=== PATIENT | female | born 1955 | race Caucasian/White ===

== ENCOUNTER 2021-09-05 09:16 | Outpatient (REF) | payer MEDICARE, SELFPAY ==
[2021-09-05 10:35] LABS: Hematocrit 35.8 % (37.0-47.0); Hemoglobin 12.4 g/dl (12.0-16.0); Mean Corpuscular HGB Conc 34.6 g/dl (31.0-35.0); Mean Corpuscular Hemoglobin 30.7 pg (27.0-33.0); Mean Corpuscular Volume 88.6 fL (80.0-98.0); Mean Platelet Volume 8.6 fL (9.4-12.3); Platelet Count 327 X10*3/uL (160-400); Red Blood Count 4.04 X10*6/uL (4.20-5.50); Red Cell Distribution Width 12.6 % (11.0-16.0); White Blood Count 7.4 X10*3/uL (4.8-10.8)
[2021-09-05 11:09] LABS: Alanine Aminotransferase 14 U/L (0-31); Albumin Level 4.2 g/dL (3.5-5.0); Alkaline Phosphatase 103 U/L (39-117); Anion Gap 15 (12-20); Aspartate Amino Transferase 17 U/L (5-31); Bilirubin Direct 0.2 mg/dL (0.0-0.5); Bilirubin Total 0.5 mg/dL (0.0-1.0); Blood Urea Nitrogen 20 mg/dL (9-16); Calcium 9.6 mg/dL (8.4-10.2); Carbon Dioxide 22 mmol/L (22-29); Chloride 107 mmol/L (96-108); Cholesterol 195 mg/dL; Estimated Glomerular Filt Rate > 60; Glucose Random 95 mg/dL (60-115); HDL Cholesterol 49 mg/dL; LDL Cholesterol Calculated 128 mg/dl; Potassium 4.5 mmol/L (3.3-5.1); Sodium 139 mmol/L (135-145); Triglycerides 94 mg/dL
[2021-09-05 11:33] LABS: Thyroid Stimulating Hormone 1.05 uIU/mL (0.32-4.0)
== END 2021-09-05 09:17 | disposition home or self-care (01) ==
LOC: HO.LAB 09:16
PROVIDERS: PCP Internal Medicine; Visit Provider Internal Medicine
DX: F32.4 Major depressive disorder, single episode, in partial remission (principal); F17.200 Nicotine dependence, unspecified, uncomplicated
CPT/HCPCS: 36415; 80048; 80061; 80076; 84443; 85027

== ENCOUNTER 2022-06-17 11:17 | Outpatient (REF) | payer MEDICARE, SELFPAY ==
[2022-06-17 12:00] LABS: Hematocrit 35.7 % (37.0-47.0); Hemoglobin 12.5 g/dl (12.0-16.0); Mean Corpuscular Hemoglobin 30.3 pg (27.0-33.0); Mean Corpuscular Volume 86.4 fL (80.0-98.0); Mean Platelet Volume 8.2 fL (9.4-12.3); Platelet Count 337 X10*3/uL (160-400); Red Blood Count 4.13 X10*6/uL (4.20-5.50); Red Cell Distribution Width 13.2 % (11.0-16.0); White Blood Count 8.7 X10*3/uL (4.8-10.8)
[2022-06-17 12:10] LABS: Appearance Urine Cloudy; Color Urine Yellow; Glucose Urine UA Negative (Negative); Leukocyte Esterase Urine Moderate (2+) (Negative); Nitrite Urine Negative (Negative); PH 5.5 (5.0-9.0); Specific Gravity - Urine 1.025 (1.005-1.025); UMIC TRIGGER UA YES; Urine Blood Negative (Negative); Urine Ketones Negative (Negative); Urine Protein Negative (Neg-Trace)
[2022-06-17 12:17] LABS: Alanine Aminotransferase 31 U/L (0-31); Albumin Level 4.1 g/dL (3.5-5.0); Alkaline Phosphatase 115 U/L (39-117); Anion Gap 16 (12-20); Aspartate Amino Transferase 25 U/L (5-31); Bilirubin Direct < 0.2 mg/dL (0.0-0.5); Bilirubin Total 0.5 mg/dL (0.0-1.0); Blood Urea Nitrogen 19 mg/dL (9-16); Calcium 9.2 mg/dL (8.4-10.2); Carbon Dioxide 19 mmol/L (22-29); Chloride 107 mmol/L (96-108); Cholesterol 196 mg/dL; Estimated Glomerular Filt Rate > 60; Glucose Random 91 mg/dL (60-115); HDL Cholesterol 45 mg/dL; LDL Cholesterol Calculated 129 mg/dl; Potassium 4.4 mmol/L (3.3-5.1); Sodium 138 mmol/L (135-145); Triglycerides 113 mg/dL
[2022-06-17 12:27] LABS: Bacteria Urine 1+ (None Seen); Hyaline Casts Urine 0-2 /LPF (0-2); RBC Urine 0-2 /HPF (0-2); Squamous Epithelial Cell Urine >20 /HPF (0-2)
[2022-06-17 12:34] LABS: Thyroid Stimulating Hormone 0.91 uIU/mL (0.32-4.0)
== END 2022-06-17 11:18 | disposition home or self-care (01) ==
LOC: HO.LAB 11:17
PROVIDERS: PCP Internal Medicine; Visit Provider Internal Medicine
DX: E78.00 Pure hypercholesterolemia, unspecified (principal); F32.4 Major depressive disorder, single episode, in partial remission; F17.200 Nicotine dependence, unspecified, uncomplicated
CPT/HCPCS: 36415; 80048; 80061; 80076; 81001; 81003; 84443; 85027

== ENCOUNTER 2022-07-25 11:56 | Outpatient (REF) | payer MEDICARE, SELFPAY ==
--- NOTE | ~2022-07-25 | MM_ITS ---
EXAMINATION: MM SCREENING DIGITAL BREAST TOMOSYNTHESIS, BILATERAL CLINICAL INFORMATION: Screening. Asymptomatic. The lifetime risk of breast cancer based on the Tyrer-Cuzick Model is 4.8%. COMPARISON: Mammography: October 26, 2019 and studies dating back to January 16, 2016 TECHNIQUE: Digital breast tomosynthesis is performed in both the craniocaudal and mediolateral oblique views along with computer-aided detection (CAD). Synthesized 2D images are generated from the tomosynthesis. FINDINGS: The breasts are heterogeneously dense, which may obscure small masses (ACR BI-RADS breast composition Category c). There are no new significant masses, abnormal calcifications, or other abnormalities. MM/MM tomosynthesis screening BI IMPRESSION: No significant changes from prior exam. ASSESSMENT: BI-RADS 1: Negative RECOMMENDATION: Routine annual mammography screening. This patient's information was entered into a reminder system with a target due date for their next mammogram.
== END 2022-07-25 11:57 | disposition home or self-care (01) ==
LOC: HO.MAMMO 11:56
PROVIDERS: PCP Internal Medicine; Visit Provider Internal Medicine
DX: Z12.31 Encounter for screening mammogram for malignant neoplasm of breast (principal)
CPT/HCPCS: 77063; 77067

== ENCOUNTER 2022-12-12 09:40 | Outpatient (AMB) | payer MEDICARE, SELFPAY ==
--- NOTE | 2022-12-12 09:46 | A.OFFPC_ITS ---
Vital Signs 12/12/22 09:47 Height 5 ft 2 in Weight 147 lb 2 oz BMI 26.9 BP 110/72 Blood Pressure Location Rt brachial Position Sitting Pulse 96 Pulse Source Pulse Oximeter Pulse Oximetry (%) 96 Oxygen Delivery Method Room Air Intake Visit Reasons: 6mth f/u Intake Note: Patient is here to follow up on Hypercholesterolemia. Conventional Underwriter Required: No Nurses' Association Counselor: Present Accompanied by: Spouse Allergies No Known Allergies Allergy (Verified 12/16/22 05:47) Medication List - Last Reconciled 12/16/22 by Kt Villafana MD atorvastatin 20 mg PO DAILY fluoxetine 20 mg PO DAILY olanzapine 10 mg PO BEDTIME risperidone 0 mg PO trihexyphenidyl 2 mg PO DAILY Tobacco use date assessed: 12/12/22 Fall risk assessment: No Falls in past year Last assessed Fall Risk: 12/12/22 Dental Screening Dental Screen Date: 12/12/22 Did you have a dental visit in the last 12 months?: No Did you have a dental problem in the last 6 months where you did not have access to dental care?: No Was dental information given to patient?: No HPI 6mth f/u HPI Details 67-year-old female presents to the office to discuss her chronic medical conditions. She she is accompanied by her . Patient has major depression and is compliant with her medications. Her symptoms are at baseline at present. She spends the day on the couch smoking. Not having any violent behavior recently. Sleeping well at night. Appetite is good. Able to do her activities of daily living. Patient would like to get a DEXA bone scan. Mammogram has been up to date. [facility] Medical History Hypercholesterolemia Major depression in partial remission Tobacco use disorder Surgical History History of knee surgery Family History Mother No problems noted. Father No problems noted. Social History Housing: House Alcohol intake: never Patient Tobacco Use Status: Current everyday Tobacco user Tobacco use type: Cigarette Cigarette Packs Per Day: 0.5 Cigarettes Per Day: 10 e-Cigarette/Vaping Use: Never Used Second Hand Smoke Exposure: Yes service: No Current occupational status: retired Cognitive needs: No Hearing needs: No Vision needs: Yes (Glasses) Questionnaire Thrive Questionnaire Date Thrive assessed: 06/17/22 RALF-7 AMB Questionnaire RALF-7 Date RALF - 7 assessed: 06/17/22 Source: Developed by Drs. Chuy Navarrete, Elina Mccallum, Devin Joaquin and colleagues, with an educational janet from [employer]. Physical exam (Primary Care) Vital Signs: Last Vital Signs Pulse 96 12/12/22 09:47 BP 110/72 12/12/22 09:47 Pulse Ox 96 12/12/22 09:47 Oxygen Delivery Method Room Air 12/12/22 09:47 Care Plan Goal for BP management: Blood pressure is in range. BMI result Body Mass Index 26.9 Tobacco/Smoking Status: Tobacco use Status Tobacco use date assessed 12/12/22 12/12/22 09:51 Patient Tobacco Use Status Current everyday Tobacco 12/12/22 09:51 Tobacco use type Cigarette 12/12/22 09:51 e-Cigarette/Vaping Use Never Used 12/12/22 09:51 Are you ready to quit: No Tobacco cessation counseling provided: No Thrive Assessment: Date of Thrive Assessment Date Thrive assessed 06/17/22 12/12/22 09:51 Advance Care Planning discussion: Exists, not on file Date of discussion: 12/12/22 Who was present: Patient and her . Forms completed: Health Care Proxy and MOLST Time spent: 1-15 minutes, not on file Actual minutes spent: 5 Const General: cooperative, healthy appearing and comfortable HENMT Head: Yes normal to inspection and Yes atraumatic Eyes General: appearance normal, both eyes and all related structures Neck Neck: Yes normal visual inspection and Yes full ROM Chest Chest palpation & inspection: normal inspection of the chest Resp Effort & Inspection: normal respiratory effort Auscultation: clear to auscultation bilaterally Cardio Jugular venous distension: no JVD Palpation: normal PMI Rate: regular rate Heart sounds: S1 normal heart sound present and S2 normal heart sound present GI Palpation (GI): Soft to palpation and No hepatosplenomegaly present Extrem General: Yes normal to inspection and Yes full ROM Assessment and Plan Assessment & Plan (1) Hypercholesterolemia: Code(s): E78.00 - Pure hypercholesterolemia, unspecified Plan: LDL is 129. Continue statins at same dosage. Bone density scan ordered. (2) Tobacco use disorder: Code(s): F17.200 - Nicotine dependence, unspecified, uncomplicated Plan: Patient understands the dangers of smoking. However she has no desire to quit smoking at this point. Counseling and dangers explained. (3) Major depression in partial remission: Code(s): F32.4 - Major depressive disorder, single episode, in partial remission Plan: Continue medications at same dosage. Both patient and her are content with the current baseline state of her depression Medications: Refilled atorvastatin 20 mg PO DAILY 90 tabs 1RF Coding Level of Care Code Est Pt Level 4 (20205) Diagnoses Hypercholesterolemia E78.00 Tobacco use disorder F17.200 Major depression in partial remission F32.4 Additional Codes Vital Signs *Quality* - Advance Care Planning discussion: Exists, not on file ([id number]) Vital Signs *Quality* - Time spent: 1-15 minutes, not on file ([id number])
[2022-12-12 09:47] VITALS: BP 110/72; PULSE 96; O2SAT 96; BMI 26.9
== END 2022-12-12 10:43 | disposition home or self-care (01) ==
PROVIDERS: PCP Internal Medicine; Visit Provider Internal Medicine
DX: E78.00 Pure hypercholesterolemia, unspecified (principal); F17.200 Nicotine dependence, unspecified, uncomplicated; F32.4 Major depressive disorder, single episode, in partial remission; Z00.00 Encounter for general adult medical examination without abnormal findings
CPT/HCPCS: 1123F; 1124F; 99214

== ENCOUNTER 2022-12-26 09:34 | Outpatient (REF) | payer MEDICARE, SELFPAY ==
--- NOTE | ~2022-12-26 | MM_ITS ---
EXAMINATION: BONE DENSITOMETRY CLINICAL INDICATION: Age-related osteoporosis without current pathological fracture. COMPARISON: This is the patient's baseline examination. TECHNIQUE: Using a [employer] DXA System (software version: 13.1) manufactured by [employer], dual-energy x-ray absorptiometry was performed of the lumbar spine and left hip. The images are of good technical quality. Summary results are attached. FINDINGS: LEFT FEMUR, NECK: BMD 0.727 g/cm2, Z-score -0.7, T-score -2.2, osteopenia. LEFT FEMUR, TOTAL: BMD 0.754 g/cm2, Z-score -0.8, T-score -2.0, osteopenia. AP SPINE L1-L4: BMD 0.923 g/cm2, Z-score -0.6, T-score -2.1, osteopenia. IDENTIFIED RISK FACTORS: Menopause, tobacco use (current smoker). HISTORY OF FRACTURE: None listed. MEDICATIONS: None listed. MM/XR DEXA axial skeleton IMPRESSION: 1. DIAGNOSIS: Osteopenia based on the lowest T-score value of -2.2 in the femoral neck applying World Health Organization criteria. 2. 10-YEAR FRACTURE RISK PREDICTION, FRAX: Major osteoporotic fracture (clinical spine, forearm, hip or shoulder) 13.2%. Hip fracture 4.0%. 3. Treatment Recommendations: NOF guidelines recommend consideration for treatment in postmenopausal women and men age 50 and older presenting with the following: -A hip or vertebral (clinical or morphometric) fracture. -T-score less than or equal to -2.5 at the femoral neck or spine after appropriate evaluation to exclude secondary causes. -Low bone mass at the hip or spine and a 10-year fracture probability by FRAX of greater than or equal to 3% for hip fracture or greater than or equal to 20% for major osteoporotic fracture based on the [place] adapted WHO algorithm. 4. Other Recommendations: All treatment decisions require clinical judgment and consideration of individual patient factors, including patient preferences, comorbidities, previous drug use, risk factors not captured in the FRAX model (e.g. frailty, falls, vitamin D deficiency, increased bone turnover, interval significant decline in bone density) and possible under or overestimation of fracture risk by FRAX. Additional medical evaluation for secondary cause of low bone mineral density may be appropriate. FUTURE SCAN RECOMMENDATION: People with diagnosed cases of osteoporosis or at high risk for fracture should have regular bone mineral density tests. For patients eligible for Medicare, routine testing is allowed once every 2 years. The testing frequency can be increased to one year for patients who have rapidly progressing disease, those who are receiving or discontinuing medical therapy to restore bone mass, or have additional risk factors.
== END 2022-12-26 09:35 | disposition home or self-care (01) ==
LOC: HO.MAMMO 09:34
PROVIDERS: PCP Internal Medicine; Visit Provider Internal Medicine
DX: Z13.820 Encounter for screening for osteoporosis (principal); M81.0 Age-related osteoporosis without current pathological fracture; Z78.0 Asymptomatic menopausal state
CPT/HCPCS: 77080

== ENCOUNTER → 2022-12-26 09:45 | Outpatient (BNV) | payer MEDICARE, SELFPAY | PROVIDERS: PCP Internal Medicine; Visit Provider Radiology Diagnostic Radiology | DX: M85.89 Other specified disorders of bone density and structure, multiple sites (principal) | CPT/HCPCS: 77080 ==

== ENCOUNTER 2023-06-12 10:09 | Outpatient (AMB) | payer MEDICARE, SELFPAY ==
--- NOTE | 2023-06-12 10:13 | A.OFFPC_ITS ---
Vital Signs 06/12/23 10:15 Height 5 ft 2 in Weight 136 lb 6 oz BMI 24.9 BP 110/66 Blood Pressure Location Lt brachial Position Sitting Pulse 77 Pulse Source Pulse Oximeter Pulse Oximetry (%) 96 Oxygen Delivery Method Room Air Intake Visit Reasons: 6 month f/u - see comment Intake Note: Patient is here to follow up on Hypercholesterolemia, Major Depression. Tack Cleaner Required: No Charcoal Unloader: Present Accompanied by: Spouse Allergies No Known Allergies Allergy (Verified 06/12/23 10:40) Medication List - Last Reconciled 06/12/23 by Kt Villafana MD atorvastatin 20 mg PO DAILY fluoxetine 20 mg PO DAILY olanzapine 15 mg PO BEDTIME trihexyphenidyl 2 mg PO BID Tobacco use date assessed: 06/12/23 Fall risk assessment: No Falls in past year Last assessed Fall Risk: 06/12/23 Dental Screening Dental Screen Date: 06/12/23 Did you have a dental visit in the last 12 months?: No Did you have a dental problem in the last 6 months where you did not have access to dental care?: No Was dental information given to patient?: No HPI 6 month f/u - see comment HPI Details 68-year-old female presents to the offic e to discuss her chronic medical conditions. Usually, patient's is with her. Today patient is alone. She reports she is at baseline state of health. compliant with medications. Does not want a mammogram or colonoscopy. Agreed to get blood work done. [facility] Medical History Hypercholesterolemia Tobacco use disorder Major depression in partial remission Surgical History History of knee surgery Family History Mother No problems noted. Father No problems noted. Social History Housing: House Alcohol intake: never Patient Tobacco Use Status: Current everyday Tobacco user Tobacco use type: Cigarette Cigarette Packs Per Day: 0.5 Cigarettes Per Day: 10 e-Cigarette/Vaping Use: Never Used Second Hand Smoke Exposure: Yes service: No Current occupational status: retired Cognitive needs: No Hearing needs: No Vision needs: Yes (Glasses) Questionnaire PHQ-9 Over the last 2 weeks, how often have you been bothered by any of the following problems? 1. Little interest or pleasure in doing things: not at all 2. Feeling down, depressed, or hopeless: not at all 3. Trouble falling or staying asleep, or sleeping too much: not at all 4. Feeling tired or having little energy: not at all 5. Poor appetite or overeating: not at all 6. Feeling bad about yourself - or that you are a failure or have let yourself or your family down: not at all 7. Trouble concentrating on things, such as reading the newspaper or watching television: not at all 8. Moving or speaking so slowly that other people could have noticed. Or the opposite - being so fidgety or restless that you have been moving around a lot more than usual: not at all 9. Thoughts that you would be better off or of hurting yourself in some way: not at all Total score: 0 Depression Screening Interpretation: Negative (The PHQ-9 score is not accurate. Patient did not want to answer any questions.) Depression Screening Done: Yes Source: Developed by Drs. Chuy Navarrete, Elina Mccallum, Devin Joaquin and colleagues, with an educational janet from [employer]. Thrive Questionnaire Date Thrive assessed: 06/12/23 I am a: Patient What is your living situation today?: I have a steady place to live Within the past 12 months, did the food you bought not last and you didn't have the money to get more?: Never true Within the past 12 months, did you worry whether your food would run out before you got money to buy more?: Never true Do you have trouble paying for medicines?: No Do you have trouble getting transportation to medical appointments?: No Do you have trouble paying your heating and electricity bill?: No Do you have trouble taking care of your child, family member or friend?: No Do you have trouble with day-to-day activities such as bathing, preparing meals, shopping, managing finances, etc.?: No Are you currently unemployed and looking for a job?: No Are you interested in more education?: No Currently or been in a relationship where the following occur: no concerns reported THRIVE Score: 0 AUDIT C Alcohol Use Questionnaire (AUDIT-C) 1. How often do you have a drink containing alcohol?: Never Total Score: 0 RALF-7 AMB Questionnaire RALF-7 Date RALF - 7 assessed: 06/12/23 Feeling nervous, anxious, or on edge: 0 = Not at all Not being able to stop or control worryin = Not at all Worrying too much about different things: 0 = Not at all Trouble relaxin = Not at all Being so restless that it is hard to sit still: 0 = Not at all Becoming easily annoyed or irritable: 0 = Not at all Feeling afraid as if something awful might happen: 0 = Not at all Total RALF-7 score (0-4 normal; 5-9 mild; 10-14 moderate; 15-21 severe): 0 Source: Developed by Drs. Chuy Navarrete, Elina Mccallum, Devin Joaquin and colleagues, with an educational janet from [employer]. Physical exam (Primary Care) Vital Signs: Last Vital Signs Pulse 77 06/12/23 10:15 BP 110/66 06/12/23 10:15 Pulse Ox 96 06/12/23 10:15 Oxygen Delivery Method Room Air 06/12/23 10:15 Care Plan Goal for BP management: Blood pressure is stable. Continue current medications. BMI result Body Mass Index 24.9 Tobacco/Smoking Status: Tobacco use Status Tobacco use date assessed 06/12/23 06/12/23 10:25 Patient Tobacco Use Status Current everyday Tobacco 06/12/23 10:25 Tobacco use type Cigarette 06/12/23 10:25 e-Cigarette/Vaping Use Never Used 06/12/23 10:25 Are you ready to quit: No Tobacco cessation counseling provided: No PHQ-9: PHQ-9 Score PHQ-9: Total score 0 06/12/23 10:25 Depression Screening Interpretation: Negative (The PHQ-9 score is not accurate. Patient did not want to answer any questions.) Thrive Assessment: Date of Thrive Assessment Date Thrive assessed 06/12/23 06/12/23 10:25 Currently or been in a relationship where the following occur: no concerns reported Const General: cooperative and healthy appearing Nutritional Appearance: well nourished Orientation/consciousness: patient oriented x3 Limitations: no limitations HENMT Head: Yes normal to inspection Eyes General: appearance normal, both eyes and all related structures Neck Neck: Yes normal visual inspection Chest Chest palpation & inspection: normal palpation of entire chest wall Resp Effort & Inspection: normal respiratory effort Neuro General: patient oriented x3 Assessment and Plan Assessment & Plan (1) Hypercholesterolemia: Code(s): E78.00 - Pure hypercholesterolemia, unspecified Plan: Blood work has been ordered. Will call with results. Patient has enough medications. (2) Tobacco use disorder: Code(s): F17.200 - Nicotine dependence, unspecified, uncomplicated Plan: Patient is not willing to quit at this time.. (3) Major depression in partial remission: Code(s): F32.4 - Major depressive disorder, single episode, in partial remission Plan: Condition appears stable. Continue medications and follow-up with the psychiatrist. Orders: Orders Complete Blood Count no Diff Today E78.00 - Pure hypercholesterolemia, unspecified, F17.200 - Nicotine dependence, unspecified, uncomplicated, F32.4 - Major depressive disorder, single episode, in partial remission Liver Panel Today E78.00 - Pure hypercholesterolemia, unspecified, F17.200 - Nicotine dependence, unspecified, uncomplicated, F32.4 - Major depressive disorder, single episode, in partial remission Thyroid Stimulating Hormone Today E78.00 - Pure hypercholesterolemia, unspecified, F17.200 - Nicotine dependence, unspecified, uncomplicated, F32.4 - Major depressive disorder, single episode, in partial remission Basic Metabolic Panel Today E78.00 - Pure hypercholesterolemia, unspecified, F17.200 - Nicotine dependence, unspecified, uncomplicated, F32.4 - Major depressive disorder, single episode, in partial remission Lipid Panel Today E78.00 - Pure hypercholesterolemia, unspecified, F17.200 - Nicotine dependence, unspecified, uncomplicated, F32.4 - Major depressive disorder, single episode, in partial remission Medications: Refilled atorvastatin 20 mg PO DAILY 90 tabs 1RF Coding Level of Care Code Est Pt Level 4 (67627) Diagnoses Hypercholesterolemia E78.00 Tobacco use disorder F17.200 Major depression in partial remission F32.4
[2023-06-12 10:15] VITALS: BP 110/66; PULSE 77; O2SAT 96; BMI 24.9
== END 2023-06-12 10:37 | disposition home or self-care (01) ==
PROVIDERS: PCP Internal Medicine; Visit Provider Internal Medicine
DX: E78.00 Pure hypercholesterolemia, unspecified (principal); F17.200 Nicotine dependence, unspecified, uncomplicated; F32.4 Major depressive disorder, single episode, in partial remission
CPT/HCPCS: 99214

== ENCOUNTER 2023-06-12 10:49 | Outpatient (REF) | payer MEDICARE, SELFPAY ==
[2023-06-12 11:54] LABS: Hematocrit 36.4 % (37.0-47.0); Hemoglobin 12.8 g/dl (12.0-16.0); Mean Corpuscular HGB Conc 35.2 g/dl (31.0-35.0); Mean Corpuscular Hemoglobin 31.2 pg (27.0-33.0); Mean Corpuscular Volume 88.8 fL (80.0-98.0); Mean Platelet Volume 8.7 fL (9.4-12.3); Platelet Count 321 X10*3/uL (160-400); Red Cell Distribution Width 13.1 % (11.0-16.0); White Blood Count 9.2 X10*3/uL (4.8-10.8)
[2023-06-12 12:21] LABS: Alanine Aminotransferase 16 U/L (0-31); Albumin Level 4.2 g/dL (3.5-5.0); Alkaline Phosphatase 108 U/L (39-117); Anion Gap 12 (12-20); Aspartate Amino Transferase 19 U/L (5-31); Bilirubin Direct 0.2 mg/dL (0.0-0.5); Bilirubin Total 0.6 mg/dL (0.0-1.0); Blood Urea Nitrogen 18 mg/dL (9-16); Calcium 9.7 mg/dL (8.4-10.2); Carbon Dioxide 25 mmol/L (22-29); Chloride 107 mmol/L (96-108); Cholesterol 175 mg/dL (<200); Estimated Glomerular Filt Rate > 60; Glucose Random 103 mg/dL (60-115); HDL Cholesterol 39 mg/dL (>40); LDL Cholesterol Calculated 114 mg/dL (<100); Sodium 140 mmol/L (135-145); Total Protein 7.3 g/dL (6.5-8.0); Triglycerides 111 mg/dL (<150)
[2023-06-12 12:38] LABS: Thyroid Stimulating Hormone 0.88 uIU/mL (0.32-4.0)
== END 2023-06-12 10:50 | disposition home or self-care (01) ==
LOC: HO.LAB 10:49
PROVIDERS: PCP Internal Medicine; Visit Provider Internal Medicine
DX: E78.00 Pure hypercholesterolemia, unspecified (principal); F17.200 Nicotine dependence, unspecified, uncomplicated; F32.4 Major depressive disorder, single episode, in partial remission
CPT/HCPCS: 36415; 80048; 80061; 80076; 84443; 85027

== ENCOUNTER 2023-09-25 09:56 | Outpatient (AMB) | payer MEDICARE, SELFPAY ==
--- NOTE | 2023-09-25 10:01 | A.OFFPC_ITS ---
Vital Signs 09/25/23 10:02 Height 5 ft 2 in Weight 125 lb 8 oz BMI 23.0 BP 120/66 Blood Pressure Location Rt brachial Position Sitting Pulse 94 Pulse Source Pulse Oximeter Pulse Oximetry (%) 98 Oxygen Delivery Method Room Air Intake Visit Reasons: 3 month f/u Intake Note: Patient is here to follow up on Hypercholesterolemia, Major Depression Demand Generation Manager Required: No Parts Analyst: Present Accompanied by: Spouse Allergies No Known Allergies Allergy (Verified 09/25/23 10:48) Medication List - Last Reconciled 09/25/23 by Kt Villafana MD atorvastatin 20 mg PO DAILY cholecalciferol (vitamin D3) 50 mcg PO DAILY fluoxetine 20 mg PO DAILY olanzapine 15 mg PO BEDTIME trihexyphenidyl 2 mg PO BID Tobacco use date assessed: 09/25/23 Fall risk assessment: No Falls in past year Last assessed Fall Risk: 09/25/23 Dental Screening Dental Screen Date: 06/12/23 HPI 3 month f/u HPI Details 68-year-old female presents to the office to discuss her chronic medical conditions. She is accompanied by her . Patient is at baseline state of health. Able to function and do all activities of daily living. Compliant with medications. [facility] Medical History Hypercholesterolemia Tobacco use disorder Major depression in partial remission Surgical History History of knee surgery Family History Mother No problems noted. Father No problems noted. Social History Housing: House Alcohol intake: never Patient Tobacco Use Status: Current everyday Tobacco user Tobacco use type: Cigarette Cigarette Packs Per Day: 0.5 Cigarettes Per Day: 10 e-Cigarette/Vaping Use: Never Used Second Hand Smoke Exposure: Yes service: No Current occupational status: retired Cognitive needs: No Hearing needs: No Vision needs: Yes (Glasses) Questionnaire Thrive Questionnaire Date Thrive assessed: 06/12/23 RALF-7 AMB Questionnaire RALF-7 Date RALF - 7 assessed: 06/12/23 Source: Developed by Drs. Chuy Navarrete, Elina Mccallum, Devin Joaquin and colleagues, with an educational janet from [employer]. Physical exam (Primary Care) Vital Signs: Last Vital Signs Pulse 94 09/25/23 10:02 BP 120/66 09/25/23 10:02 Pulse Ox 98 09/25/23 10:02 Oxygen Delivery Method Room Air 09/25/23 10:02 Care Plan Goal for BP management: Blood pressure is stable continue medications at same dosage. BMI result Body Mass Index 23.0 Tobacco/Smoking Status: Tobacco use Status Tobacco use date assessed 09/25/23 09/25/23 10:09 Patient Tobacco Use Status Current everyday Tobacco 09/25/23 10:09 Tobacco use type Cigarette 09/25/23 10:09 e-Cigarette/Vaping Use Never Used 09/25/23 10:09 Are you ready to quit: No Thrive Assessment: Date of Thrive Assessment Date Thrive assessed 06/12/23 09/25/23 10:09 Const General: cooperative and healthy appearing Nutritional Appearance: well nourished Orientation/consciousness: patient oriented x3 Limitations: no limitations HENMT Head: Yes normal to inspection Eyes General: appearance normal, both eyes and all related structures Neck Neck: Yes normal visual inspection Chest Chest palpation & inspection: normal palpation of entire chest wall Resp Effort & Inspection: normal respiratory effort Neuro General: patient oriented x3 Assessment and Plan Assessment & Plan (1) Major depression in partial remission: Code(s): F32.4 - Major depressive disorder, single episode, in partial remission Plan: Condition is stable. Continue medications at same dosage. (2) Tobacco use disorder: Code(s): F17.200 - Nicotine dependence, unspecified, uncomplicated Plan: Counseling to quit smoking done. (3) Hypercholesterolemia: Code(s): E78.00 - Pure hypercholesterolemia, unspecified Plan: Blood work shows Reviewed with patient. Continue medications at same dosage. Coding Level of Care Code Est Pt Level 4 (87500) Complex EM visit Add On G2211 Diagnoses Major depression in partial remission F32.4 Tobacco use disorder F17.200 Hypercholesterolemia E78.00
[2023-09-25 10:02] VITALS: BP 120/66; PULSE 94; O2SAT 98; BMI 23.0
== END 2023-09-25 10:44 | disposition home or self-care (01) ==
PROVIDERS: PCP Internal Medicine; Visit Provider Internal Medicine
DX: F32.4 Major depressive disorder, single episode, in partial remission (principal); F17.200 Nicotine dependence, unspecified, uncomplicated; E78.00 Pure hypercholesterolemia, unspecified
CPT/HCPCS: 99214; G2211

== ENCOUNTER 2024-03-31 10:13 | Outpatient (AMB) | payer MEDICARE, SELFPAY ==
[2024-03-31 10:18] VITALS: BP 118/70; PULSE 88; O2SAT 97; BMI 20.1
--- NOTE | 2024-03-31 10:18 | A.OFFPC_ITS ---
Vital Signs 03/31/24 10:18 Height 5 ft 2 in Weight 110 lb BMI 20.1 BP 118/70 Blood Pressure Location Lt brachial Position Sitting Pulse 88 Pulse Source Pulse Oximeter Pulse Oximetry (%) 97 Oxygen Delivery Method Room Air Intake Visit Reasons: 6mof\u Intake Note: Patient here for a 6 month follow up Vessel Specialist Required: No Accompanied by: Self / Same As Patient Allergies No Known Allergies Allergy (Verified 03/31/24 10:19) Tobacco use date assessed: 09/25/23 Fall risk assessment: No Falls in past year Last assessed Fall Risk: 03/31/24 Dental Screening Dental Screen Date: 03/31/24 Did you have a dental visit in the last 12 months?: No Did you have a dental problem in the last 6 months where you did not have access to dental care?: No Was dental information given to patient?: Patient has dentist [facility] Medical History Hypercholesterolemia Tobacco use disorder Major depression in partial remission Surgical History History of knee surgery Family History Mother No problems noted. Father No problems noted. Social History Housing: House Alcohol intake: never Patient Tobacco Use Status: Current everyday Tobacco user Tobacco use type: Cigarette Cigarette Packs Per Day: 0.5 Cigarettes Per Day: 10 e-Cigarette/Vaping Use: Never Used Second Hand Smoke Exposure: Yes service: No Current occupational status: retired Cognitive needs: No Hearing needs: No Vision needs: Yes (Glasses) Questionnaire Thrive Questionnaire Date Thrive assessed: 06/12/23 RALF-7 AMB Questionnaire RALF-7 Date RALF - 7 assessed: 06/12/23 Source: Developed by Drs. Chuy Navarrete, Elina Mccallum, Devin Joaquin and colleagues, with an educational janet from [employer]. Physical exam (Primary Care) BMI result Body Mass Index 20.1 Tobacco/Smoking Status: Tobacco use Status Tobacco use date assessed 09/25/23 09/25/23 10:09 Patient Tobacco Use Status Current everyday Tobacco 09/25/23 10:09 Tobacco use type Cigarette 09/25/23 10:09 e-Cigarette/Vaping Use Never Used 09/25/23 10:09 Thrive Assessment: Date of Thrive Assessment Date Thrive assessed 06/12/23 09/25/23 10:09 Const General: cooperative and healthy appearing Nutritional Appearance: well nourished Orientation/consciousness: patient oriented x3 Limitations: no limitations HENMT Head: Yes normal to inspection Eyes General: appearance normal, both eyes and all related structures Neck Neck: Yes normal visual inspection Chest Chest palpation & inspection: normal palpation of entire chest wall Resp Effort & Inspection: normal respiratory effort Neuro General: patient oriented x3 Coding Level of Care Code Est Pt Level 4 (17329) Complex EM visit Add On G2211 Diagnoses Major depression in partial remission F32.4 Hypercholesterolemia E78.00 Tobacco use disorder F17.200 Assessment & Plan Assessment & Plan (1) Major depression in partial remission: Code(s): F32.4 - Major depressive disorder, single episode, in partial remission Category: Medical (2) Hypercholesterolemia: Code(s): E78.00 - Pure hypercholesterolemia, unspecified Category: Medical (3) Tobacco use disorder: Code(s): F17.200 - Nicotine dependence, unspecified, uncomplicated Category: Medical Plan History of Present Illness The patient is a 69-year-old female presenting with a request for medication refill and routine follow-up of her existing health conditions. The patient has schizophrenia, for which she is currently managed on olanzapine and triplhexiphenidyl. She is under the care of a therapist, and her psychiatrist prescribes all medications except the prescription being refilled during this visit. The patient reports that her mental health has been stable, and she is compliant with her medication regimen. An additional concern for the patient is high cholesterol, which requires concurrent management but was not actively discussed during this visit for specific changes in management. While attempting to manage her health, she has declined routine preventative measures, including Cologuard testing and mammography, after understanding their uses?indicating awareness and declination based on personal choice. Social History Review of Systems - General: Denies any new concerns about health. - Vision: Reports good vision without halos at night. - Mental: Reports stable mental health. - Cardiovascular: Denies heart problems or symptoms. - Dermatologic: Denies any rashes. Physical Exam - Dermatologic- No rash observed. - Vision- Vision evaluation is normal; no halos. - Cardiovascular- Normal cardiovascular response during examination. Results Plan - Schizophrenia: Continue current management with olanzapine and triplhexiphenidyl. Refill prescription for 90 days with one refill. Encourage patient to maintain ongoing therapeutic relationship with her therapist. - High Cholesterol: Plan for fasting blood work to further assess and manage patient's lipid profile. Patient was informed and verbally consented to the use of an ambient scribe for clinic note documentation during this visit. Discussion Notes The patient and I discussed her current mental health medications and ensured she refilled her prescription for olanzapine and triphlexiphenidyl. I reiterated the importance of continuing her therapy with her mental health provider. I addressed her choice to decline both the Cologuard and mammogram screenings after ensuring she understands their roles in preventative health care. I also confirmed her decision to get a flu shot and instructed her on the need for fasting blood work to monitor her lipid levels. Finally, I scheduled a follow-up in six months to ensure continued good health and medication adherence. Patient Instructions - Continue taking prescribed medications as directed. - Undergo fasting blood work as planned. - Attend therapy sessions as scheduled. - Return for a follow-up appointment in six months.
== END 2024-03-31 10:33 | disposition home or self-care (01) ==
PROVIDERS: PCP Internal Medicine; Visit Provider Internal Medicine
DX: F32.4 Major depressive disorder, single episode, in partial remission (principal); E78.00 Pure hypercholesterolemia, unspecified; F17.200 Nicotine dependence, unspecified, uncomplicated

== ENCOUNTER → 2024-03-31 10:13 | Outpatient (BNVA) | payer MEDICARE, SELFPAY | PROVIDERS: PCP Internal Medicine; Visit Provider Internal Medicine | DX: F32.4 Major depressive disorder, single episode, in partial remission (principal); E78.00 Pure hypercholesterolemia, unspecified; F17.200 Nicotine dependence, unspecified, uncomplicated; Z71.6 Tobacco abuse counseling | CPT/HCPCS: 99212 ==

== ENCOUNTER 2024-04-02 08:55 | Outpatient (REF) | payer MEDICARE, SELFPAY ==
[2024-04-02 09:41] LABS: Hematocrit 34.6 % (37.0-47.0); Hemoglobin 12.4 g/dl (12.0-16.0); Mean Corpuscular HGB Conc 35.8 g/dl (31.0-35.0); Mean Corpuscular Hemoglobin 32.7 pg (27.0-33.0); Mean Corpuscular Volume 91.3 fL (80.0-98.0); Mean Platelet Volume 8.7 fL (9.4-12.3); Platelet Count 299 X10*3/uL (160-400); Red Blood Count 3.79 X10*6/uL (4.20-5.50)
[2024-04-02 10:16] LABS: Alanine Aminotransferase 16 U/L (0-31); Alkaline Phosphatase 85 U/L (39-117); Anion Gap 13 (12-20); Aspartate Amino Transferase 22 U/L (5-31); Bilirubin Direct 0.2 mg/dL (0.0-0.5); Bilirubin Total 0.7 mg/dL (0.0-1.0); Blood Urea Nitrogen 20 mg/dL (9-16); Calcium 9.5 mg/dL (8.4-10.2); Carbon Dioxide 25 mmol/L (22-29); Chloride 108 mmol/L (96-108); Cholesterol 178 mg/dL (<200); Estimated Glomerular Filt Rate > 60; Glucose Random 104 mg/dL (60-115); HDL Cholesterol 43 mg/dL (>40); LDL Cholesterol Calculated 118 mg/dL (<100); Sodium 142 mmol/L (135-145); Triglycerides 89 mg/dL (<150)
[2024-04-02 10:33] LABS: Thyroid Stimulating Hormone 0.61 uIU/mL (0.32-4.0)
== END 2024-04-02 08:56 | disposition home or self-care (01) ==
LOC: HO.LAB 08:55
PROVIDERS: PCP Internal Medicine; Visit Provider Internal Medicine
DX: F17.200 Nicotine dependence, unspecified, uncomplicated (principal); E78.00 Pure hypercholesterolemia, unspecified; F32.4 Major depressive disorder, single episode, in partial remission
CPT/HCPCS: 36415; 80048; 80061; 80076; 84443; 85027

== ENCOUNTER 2024-09-30 09:56 | Outpatient (AMB) | payer MEDICARE, SELFPAY ==
--- NOTE | 2024-09-30 09:59 | A.OFFPC_ITS ---
Vital Signs 09/30/24 10:00 Height 5 ft 2 in Weight 119 lb BMI 21.8 BP 120/70 Blood Pressure Location Lt brachial Position Sitting Pulse 81 Pulse Source Pulse Oximeter Temp 97.1 F Temp Source Temporal Artery Scan Pulse Oximetry (%) 98 Oxygen Delivery Method Room Air Intake Visit Reasons: annual exam - see comments Intake Note: Patient is here today for a physical. Radio/Tv Technician Required: No Customer Service And Sales Consultant: Present Accompanied by: Spouse Allergies No Known Allergies Allergy (Verified 09/30/24 10:00) Tobacco use date assessed: 09/30/24 Fall risk assessment: No Falls in past year Last assessed Fall Risk: 09/30/24 Dental Screening Dental Screen Date: 09/30/24 Did you have a dental visit in the last 12 months?: No Did you have a dental problem in the last 6 months where you did not have access to dental care?: No Was dental information given to patient?: Patient declined [facility] Medical History Hypercholesterolemia Tobacco use disorder Major depression in partial remission Surgical History History of knee surgery Family History Mother No problems noted. Father No problems noted. Social History Housing: House Alcohol intake: never Patient Tobacco Use Status: Current everyday Tobacco user Tobacco use type: Cigarette Cigarette Packs Per Day: 0.5 Cigarettes Per Day: 10 e-Cigarette/Vaping Use: Never Used Second Hand Smoke Exposure: Yes service: No Current occupational status: retired Cognitive needs: No Hearing needs: No Vision needs: Yes (Glasses) Questionnaire PHQ-9 Over the last 2 weeks, how often have you been bothered by any of the following problems? 1. Little interest or pleasure in doing things: not at all 2. Feeling down, depressed, or hopeless: not at all 3. Trouble falling or staying asleep, or sleeping too much: not at all 4. Feeling tired or having little energy: not at all 5. Poor appetite or overeating: not at all 6. Feeling bad about yourself - or that you are a failure or have let yourself or your family down: not at all 7. Trouble concentrating on things, such as reading the newspaper or watching television: not at all 8. Moving or speaking so slowly that other people could have noticed. Or the opposite - being so fidgety or restless that you have been moving around a lot more than usual: not at all 9. Thoughts that you would be better off or of hurting yourself in some way: not at all Total score: 0 Depression Screening Interpretation: Negative Depression Screening Done: Yes Source: Developed by Drs. Chuy Navarrete, Elina Mccallum, Devin Joaquin and colleagues, with an educational janet from [employer] Thrive Questionnaire Date Thrive assessed: 09/30/24 I am a: Patient What is your living situation today?: I have a steady place to live Within the past 12 months, did the food you bought not last and you didn't have the money to get more?: Never true Within the past 12 months, did you worry whether your food would run out before you got money to buy more?: Never true Do you have trouble paying for medicines?: No Do you have trouble getting transportation to medical appointments?: No Do you have trouble paying your heating and electricity bill?: No Do you have trouble taking care of your child, family member or friend?: No Do you have trouble with day-to-day activities such as bathing, preparing meals, shopping, managing finances, etc.?: No Are you currently unemployed and looking for a job?: No Are you interested in more education?: No Please select the resources that you would like help with: None Currently or been in a relationship where the following occur: No concerns reported THRIVE Score: 0 AUDIT C Alcohol Use Questionnaire (AUDIT-C) 1. How often do you have a drink containing alcohol?: Never Total Score: 0 RALF-7 AMB Questionnaire RALF-7 Date RALF - 7 assessed: 09/30/24 Feeling nervous, anxious, or on edge: 0 = Not at all Not being able to stop or control worryin = Not at all Worrying too much about different things: 0 = Not at all Trouble relaxin = Not at all Being so restless that it is hard to sit still: 0 = Not at all Becoming easily annoyed or irritable: 0 = Not at all Feeling afraid as if something awful might happen: 0 = Not at all Total RALF-7 score (0-4 normal; 5-9 mild; 10-14 moderate; 15-21 severe): 0 Source: Developed by Drs. Chuy Navarrete, Elina Mccallum, Devin Joaquin and colleagues, with an educational janet from [employer] Physical exam (Primary Care) Vital Signs: Last Vital Signs Temp 97.1 F 09/30/24 10:00 Pulse 81 09/30/24 10:00 BP 120/70 09/30/24 10:00 Pulse Ox 98 09/30/24 10:00 Oxygen Delivery Method Room Air 09/30/24 10:00 BMI result Body Mass Index 21.8 Tobacco/Smoking Status: Tobacco use Status Tobacco use date assessed 09/30/24 09/30/24 10:24 Patient Tobacco Use Status Current everyday Tobacco 09/30/24 10:24 Tobacco use type Cigarette 09/30/24 10:24 e-Cigarette/Vaping Use Never Used 09/30/24 10:24 PHQ-9: PHQ-9 Score PHQ-9: Total score 0 09/30/24 10:24 Depression Screening Interpretation: Negative Thrive Assessment: Date of Thrive Assessment Date Thrive assessed 09/30/24 09/30/24 10:24 Currently or been in a relationship where the following occur: No concerns reported Coding Level of Care Code Est Pt Level 4 (71551) Complex EM visit Add On G2211 Diagnoses Hypercholesterolemia E78.00 Major depression in partial remission F32.4 Assessment & Plan Assessment & Plan (1) Hypercholesterolemia: Code(s): E78.00 - Pure hypercholesterolemia, unspecified Category: Medical Plan: BW ordered. Continues to decline taking statins (2) Major depression in partial remission: Code(s): F32.4 - Major depressive disorder, single episode, in partial remission Category: Medical Plan: Continue current medications Plan History of Present Illness - The patient is a 69-year-old female presenting with nail care concerns. - Recent incident of cutting fingernails resulted in prolonged bleeding lasting two hours, leading to hesitation to manage nail care independently. - Schizophrenia is stable; patient maintains regular follow-up with her psychiatrist. Recent visit was two weeks ago. - Patient continues to take cholesterol medication for hypercholesterolemia but has no refills left on the current bottle. - Routine screenings for mammograms and colonoscopies are being declined by the patient. Social History Review of Systems - Psychiatric: Reports stable schizophrenia Physical Exam General: Cooperative and healthy appearing Nutritional Appearance: Well nourished Orientation/consciousness: Patient oriented x3 Limitations: No limitations Head: Normal to inspection General: Appearance normal, both eyes and all related structures Neck: Normal visual inspection Chest: Normal palpation of entire chest wall Respiratory: N ormal respiratory effort Neurology: Patient oriented x3, schizophrenia seems to be stable. Continue the medications. Results Plan 1. Schizophrenia - Continue current psychiatric medications as they remain effective. - Ensure regular follow-ups with psychiatrist are maintained. 2. Hypercholesterolemia - Advise fasting blood work to monitor cholesterol levels. - Continue with current medications despite no refills. 3. Nail Care - Referral to eyelet machine operator for professional toenail care. Discussion Notes During today's visit, the patient expressed difficulty managing nail care due to a past incident of nicking her fingernails. To address her concerns, I am referring her to a eyelet machine operator for professional nail care to prevent injury and bleeding. We also discussed her current psychiatric condition, which remains stable under her psychiatrist's care. Regarding her hypercholesterolemia, I advised the patient to have blood work done after fasting to evaluate her cholesterol levels further, and she was encouraged to continue with her current medication regimen. Despite the medication bottle indicating no refills, she has not experienced any issues. Additionally, the patient has chosen not to undergo recommended screenings such as mammograms and colonoscopies. Patient Instructions - Follow up with eyelet machine operator for toenail care referral. - Continue taking all prescribed medications as directed. - Schedule and complete fasting blood work for cholesterol monitoring. - Maintain regular appointments with psychiatrist. - Return in six months for follow-up. - Notify healthcare provider with any changes or concerns before the scheduled follow-up.
[2024-09-30 10:00] VITALS: BP 120/70; PULSE 81; TEMP 36.2; O2SAT 98; BMI 21.8
--- OUTSIDE RECORDS SUMMARY | 2024-09-30 11:24 | XMS_ITS | Encounter Summary ---
Author Organization [facility] Address [address] [place] [address] Care Team Providers Care Plane Tender Name Role Phone Jeremiah Connelly MD Primary Care Provider Unava ilable Jayla Arzate MD Primary Care Provider Unavailab le Encounter Details Date Type Department Care Team Description 06/25/2019 Release of Information Medical Records [address] [place] [id number] Abstract, Provider Social History Tobacco Use Types Packs/Day Years Used Date Smoking Tobacco: Every Day Cigarettes 0.5 40 Smokeless Tobacco: Never Comments:1/3 pack per day Alcohol Use Standard Drinks/Week Comments No 0 (1 standard drink = 0.6 oz pur e alcohol) Sex Assigned at Date Recorded Not on file documented as of this encounter Nursing Notes * Roxane Santos - 06/25/2019 10:58 AM EST AUTHORIZATION TO OBTAIN RECORDS MAILED TO DR. LOWE. documented in this encounter Plan of Treatment Not on file documented as of this encounter Visit Diagnoses Not on filedocumented in this encounter Care Teams Plane Tender Relationship Specialty Start Date End Date Jeremiah Connelly MD PCP - General Internal Medicine 11/02/18 08/03/20 Jayla Arzate MD PCP - General Internal Medicine 08/04/20 documented as of this encounter
== END 2024-09-30 10:44 | disposition home or self-care (01) ==
LOC: HO.HMCH 09:57
PROVIDERS: PCP Internal Medicine; Visit Provider Internal Medicine
DX: E78.00 Pure hypercholesterolemia, unspecified (principal); F32.4 Major depressive disorder, single episode, in partial remission

== ENCOUNTER → 2024-09-30 09:56 | Outpatient (BNVA) | payer MEDICARE, SELFPAY | PROVIDERS: PCP Internal Medicine; Visit Provider Internal Medicine | DX: E78.00 Pure hypercholesterolemia, unspecified (principal); F32.4 Major depressive disorder, single episode, in partial remission | CPT/HCPCS: 99212 ==

== ENCOUNTER 2024-10-12 09:38 | Outpatient (REF) | payer MEDICARE, SELFPAY ==
--- OUTSIDE RECORDS SUMMARY | 2024-10-12 10:32 | XMS_ITS | Encounter Summary ---
Author Organization [facility] Address [address] [place] [address] Care Team Providers Care Industrial Tractor Driver Name Role Phone Jeremiah Connelly MD Primary Care Provider Unava ilable Jayla Arzate MD Primary Care Provider Unavailab le Encounter Details Date Type Department Care Team Description 06/25/2019 Release of Information Medical Records [address] [place] [id number] Abstract, Provider Social History Tobacco Use Types [...] on filedocumented in this encounter Care Teams Industrial Tractor Driver Relationship Specialty Start Date End Date Jeremiah Connelly MD PCP - General Internal Medicine 11/02/18 08/03/20 Jayla Arzate MD PCP - General Internal Medicine 08/04/20 documented as of this encounter
[2024-10-12 10:44] LABS: Hematocrit 34.5 % (37.0-47.0); Hemoglobin 12.1 g/dl (12.0-16.0); Mean Corpuscular HGB Conc 35.1 g/dl (31.0-35.0); Mean Corpuscular Hemoglobin 31.7 pg (27.0-33.0); Mean Corpuscular Volume 90.3 fL (80.0-98.0); Mean Platelet Volume 8.7 fL (9.4-12.3); Platelet Count 276 X10*3/uL (160-400); Red Blood Count 3.82 X10*6/uL (4.20-5.50); Red Cell Distribution Width 12.8 % (11.0-16.0); White Blood Count 7.3 X10*3/uL (4.8-10.8)
[2024-10-12 11:33] LABS: Alanine Aminotransferase 16 U/L (0-31); Albumin Level 4.4 g/dL (3.5-5.0); Alkaline Phosphatase 80 U/L (39-117); Anion Gap 11 (12-20); Aspartate Amino Transferase 24 U/L (5-31); Bilirubin Direct 0.2 mg/dL (0.0-0.5); Bilirubin Total 0.7 mg/dL (0.0-1.0); Blood Urea Nitrogen 22 mg/dL (9-16); Calcium 9.3 mg/dL (8.4-10.2); Carbon Dioxide 25 mmol/L (22-29); Chloride 109 mmol/L (96-108); Cholesterol 173 mg/dL (<200); Estimated Glomerular Filt Rate > 60; Glucose Random 86 mg/dL (60-115); HDL Cholesterol 45 mg/dL (>40); LDL Cholesterol Calculated 109 mg/dL (<100); Potassium 4.3 mmol/L (3.3-5.1); Sodium 141 mmol/L (135-145); Triglycerides 95 mg/dL (<150)
[2024-10-12 11:51] LABS: Thyroid Stimulating Hormone 0.83 uIU/mL (0.32-4.0)
== END 2024-10-12 09:39 | disposition home or self-care (01) ==
LOC: HO.LAB 09:38
PROVIDERS: PCP Internal Medicine; Visit Provider Internal Medicine
DX: F32.4 Major depressive disorder, single episode, in partial remission (principal); E78.00 Pure hypercholesterolemia, unspecified; F17.210 Nicotine dependence, cigarettes, uncomplicated
CPT/HCPCS: 36415; 80048; 80061; 80076; 84443; 85027

== ENCOUNTER 2025-04-14 09:09 | Outpatient (AMB) | payer MEDICARE, SELFPAY ==
--- OUTSIDE RECORDS SUMMARY | 2025-01-17 05:00 | XMS_ITS ---
Author Organization [facility] Address [address] [place] [id number] Care Team Providers Care Assistant Project Engineer Name Role Phone Kt Villafana Primary Care Provider Elver Allan Unavailable [phone] REASON FOR VISIT NO PW Encounters Encounter [facility] Date [facility] [address] [place] [id number] 01/17/2025 Elver Allan Plan Of Treatment No Information Progress Notes * Day ALVARENGAOB:1955 ( 70 yo F)Acc No.[id number]:01/17/2025 Progress Notes Patient: Ludwig CALVERT Provider: Schuyler Allan DPM :1955 A ge:69 Y S ex:Female Date:01/17/2025 Address:[address] [place] [id number] Pcp:Kt Villafana Subjective: * Chief Complaints: * 1 . NO PW. * Medical History: Objective: * Vitals: Assessment: Plan: * Treatment: * Images: * The named appointment provid er may or may not be the originator of this progress note, and it is not deemed complete until electronically signed by the appointment provider. Sign off status: Pending * Provider: Schuyler Allan DPM Date: 0 01/17/2025 Generated for Fuad zamarripa/Mindy/eTbrendensmitting on: 1 06/15/2024 10:18 AM EST
--- NOTE | 2025-04-14 09:47 | A.OFFPC_ITS ---
Vital Signs 04/14/25 09:48 Height 5 ft 2 in Weight 122 lb 2 oz BMI 22.3 BP 132/62 Blood Pressure Location Lt brachial Position Sitting Pulse 84 Pulse Source Pulse Oximeter Temp 96.9 F Temp Source Temporal Artery Scan Pulse Oximetry (%) 96 Oxygen Delivery Method Room Air Intake Visit Reasons: 6 month f/u Intake Note: Patient is here to follow up on Hypercholesterolemia. Community Health Educator Required: No Dance Teacher: Present Accompanied by: Spouse Allergies No Known Allergies Allergy (Verified 04/14/25 10:22) Medication List - Last Reconciled 04/14/25 by Kt Villafana MD atorvastatin 20 mg PO DAILY cholecalciferol (vitamin D3) 50 mcg PO DAILY fluoxetine 20 mg PO DAILY olanzapine 15 mg PO BEDTIME trihexyphenidyl 2 mg PO BID Tobacco use date assessed: 04/14/25 Fall risk assessment: No Falls in past year Last assessed Fall Risk: 04/14/25 Dental Screening Dental Screen Date: 09/30/24 HPI HPI Comments History of Present Illness Details History of Present Illness - The patient is a 70-year-old female pr esenting for a routine follow-up for chronic condition management and health maintenance. - She has a history of depression, which is stable, and she sees a behavioral health nurse every three months for management. - Her current medications include a stat in, vitamin D3, fluoxetine, olanzapine, and trihexyphenidyl, and she is adherent. - The patient's last blood work was in [facility] and results were normal. - She has a history of receiving mammogr ams which were always normal, but she declines further screening at this time. - She also declines colorectal cancer sc reening via colonoscopy or Cologuard, stating she has had the latter previously. - Regarding functional status, she requi res assistance with showering but performs other activities of daily living independently. Social History - Functional Status: The patient needs a ssistance from a caregiver for showering but is independent with using the bathroom. - Nutrition: She reports eating well. Results - Labs: Blood work performed in September was reported as okay. [facility] Medical History Hypercholesterolemia Tobacco use disorder Major depression in partial remission Surgical History History of knee surgery Family History Mother No problems noted. Father No problems noted. Social History Housing: House Alcohol intake: never Patient Tobacco Use Status: Current everyday Tobacco user Tobacco use type: Cigarette Cigarette Packs Per Day: 0.5 Cigarettes Per Day: 10 e-Cigarette/Vaping Use: Never Used Second Hand Smoke Exposure: Yes service: No Current occupational status: retired Cognitive needs: No Hearing needs: No Vision needs: Yes (Glasses) Questionnaire Thrive Questionnaire Date Thrive assessed: 09/30/24 RALF-7 AMB Questionnaire RALF-7 Date RALF - 7 assessed: 09/30/24 Source: Developed by Drs. Chuy Navarrete, Elina Mccallum, Devin Joaquin and colleagues, with an educational janet from [employer]. Review of Systems Narrative Review of Systems - General: Denies health concerns. - HEENT/Mouth: Reports good appetite. - Psychiatric: Reports depression is well-managed. - Neurological: Reports sleeping well. Physical exam (Primary Care) Vital Signs: Last Vital Signs Temp 96.9 F 04/14/25 09:48 Pulse 84 04/14/25 09:48 BP 132/62 04/14/25 09:48 Pulse Ox 96 04/14/25 09:48 Oxygen Delivery Method Room Air 04/14/25 09:48 BMI result Body Mass Index 22.3 Tobacco/Smoking Status: Tobacco use Status Tobacco use date assessed 04/14/25 04/14/25 09:52 Patient Tobacco Use Status Current everyday Tobacco 04/14/25 09:52 Tobacco use type Cigarette 04/14/25 09:52 e-Cigarette/Vaping Use Never Used 04/14/25 09:52 Thrive Assessment: Date of Thrive Assessment Date Thrive assessed 09/30/24 04/14/25 09:52 Narrative Physical Exam General: Appearance normal, both eyes and all related structures Nutritional Appearance: Well nourished Orientation/consciousness: Patient oriented x3 Limitations: Requires assistance with showering Head: Normal to inspection Neck: Normal visual inspection Chest: Normal palpation of entire chest wall Respiratory: Normal respiratory effort Neurology: Patient oriented x3 Coding Level of Care Code Est Pt Level 4 (48908) Add On Problem Visit Only Diagnoses Major depression in partial remission F32.4 Hypercholesterolemia E78.00 Assessment & Plan Assessment & Plan (1) Major depression in partial remission: Code(s): F32.4 - Major depressive disorder, single episode, in partial remission Category: Medical (2) Hypercholesterolemia: Code(s): E78.00 - Pure hypercholesterolemia, unspecified Category: Medical Plan Plan - The patient will continue her current medications, including fluoxetine, olanzapine, trihexyphenidyl, a statin, and vitamin D3. - A refill for atorvastatin will be sent to the [facility]. - An order will be placed for repeat fasting blood work. - The patient declined a mammogram and any form of colorectal cancer screening at this time, despite counseling on the benefits. - She will continue to follow up with her behavioral health nurse every three months for depression management. Discussion Notes I reviewed the patient's health status and current medications. I discussed preventative health screenings, specifically recommending a mammogram for breast cancer screening. I explained that this test can be life-saving, but the patient refused, stating her previous tests were always normal. I also discussed colorectal cancer screening with either a colonoscopy or Cologuard, both of which she declined. I informed her that she can reconsider these screenings at a ny time. We will proceed with repeat fasting blood work. I have sent a refill for her atorvastatin to her requested pharmacy. Patient Instructions - Please go to the lab to have your blood drawn. You will need to fast (not eat or drink anything except water) before the test. - Continue taking all of your current medications as prescribed. - A refill for your atorvastatin has been sent to the [facility]. - We discussed the importance of getting a mammogram for breast cancer screening. If you change your mind, please let us know. - We also recommend screening for colon cancer. Please inform us if you decide to proceed with this. - Continue your regular appointments with the behavioral health nurse every three months. Orders: Orders Basic Metabolic Panel Today E78.00 - Pure hypercholesterolemia, unspecified, F32.4 - Major depressive disorder, single episode, in partial remission Lipid Panel Today E78.00 - Pure hypercholesterolemia, unspecified, F32.4 - Major depressive disorder, single episode, in partial remission Liver Panel Today E78.00 - Pure hypercholesterolemia, unspecified, F32.4 - Major depressive disorder, single episode, in partial remission Thyroid Stimulating Hormone Today E78.00 - Pure hypercholesterolemia, unspecified, F32.4 - Major depressive disorder, single episode, in partial remission Complete Blood Count no Diff Today E78.00 - Pure hypercholesterolemia, unspecified, F32.4 - Major depressive disorder, single episode, in partial remission UA and rflx microscopic Today E78.00 - Pure hypercholesterolemia, unspecified, F32.4 - Major depressive disorder, single episode, in partial remission Medications: Refilled atorvastatin 20 mg PO DAILY 90 tabs 1RF
[2025-04-14 09:48] VITALS: BP 132/62; PULSE 84; TEMP 36.1; O2SAT 96; BMI 22.3
--- OUTSIDE RECORDS SUMMARY | 2025-04-14 10:18 | XMS_ITS | Patient Health Record ---
Author Organization [facility] Address [address] [place] [address] Care Team Providers Care Embedded Hardware Engineer Name Role Phone Broderick Kt Primary Care Provider Elver Allan Unavailable [phone] Reason For Referral No Information Encounters Encounter Location Date Provider Diagnosis [facility] [address] [place] [address] 10/26/2024 Elver Allan Plan Of Treatment No Information Insurance Providers Payer Name Payer Address Payer Phone Subscriber Number Group Number Insured Name Patient Relationship to Insured Coverage Start Date Coverage End Date [facility] [id number] [address] [address] [place] [id number] Ludwig Mandujano Self - patient is the insured
--- OUTSIDE RECORDS SUMMARY | 2025-04-14 10:18 | XMS_ITS | Clinical Summary ---
Author Organization [facility] Address [address] [place] [address] Phone Care Team Providers Care Precipitator Supervisor Name Role Phone Jeremiah Connelly MD Primary Care Provider Allergies No known active allergies Medications atorvastatin (LIPITOR) 20 MG tablet Take 20 mg by mouth. 06/11/2019 Active hydrOXYzine (ATARAX) 25 MG tablet Take 25 mg by mouth. 10/28/2019 Active Immunizations Immunization Administration Dates Next Due Tdap 02/25/2018 Social History Tobacco Use Types Packs/Day Years Used Date Smoking Tobacco: Every Day Smokeless Tobacco: Never Alcohol Use Standard Drinks/Week Comments No 0 (1 standard drink = 0.6 oz pur e alcohol) Education Answer Date Recorded Are you interested in more education? Not on shira e 08/23/2022 Are you concerned about learning? Not on file 08/23/2022 No 08/23/2022 No 08/23/2022 Digital Access Answer Date Recorded No 09/21/2022 No 09/21/2022 No 09/21/2022 Reliable internet access at home? Not on file 09/21/2022 Device with a working camera? Not on file Comments Unknown Sex and Gender Information Value Date Recorded Sex Assigned at Female 11/09/2019 5:14 PM EDT Legal Sex Female 8:13 AM EDT Gender Identity Female 11/09/2019 5:14 PM EDT Sexual Orientation Choose not to disclose 2019 5:14 PM EDT Last Filed Vital Signs Vital Sign Reading Time Taken Comments Blood Pressure 172/78 11/09/2019 6:12 PM EDT Pulse 71 11/09/2019 6:12 PM EDT Temperature 36.1 C (97 F) 11/09/2019 5:11 PM EDT Respiratory Rate 17 11/09/2019 6:12 PM EDT Oxygen Saturation 99% 11/09/2019 6:12 PM EDT Inhaled Oxygen Concentration - - Weight 55.3 kg (122 lb) 11/09/2019 5:11 PM EDT Height 154.9 cm (5' 1 ) 11/09/2019 5:11 PM EDT Body Mass Index 23.05 11/09/2019 5:11 PM EDT Plan of Treatment Health Maintenance Due Date Last Done Comments LIPID PANEL 1956 DEPRESSION SCREENING 1968 SMOKING Hx and SMOKELESS TOBACCO SCREENING 01/28/1969 HEPATITIS C SCREENING 01/28/1974 PNEUMOCOCCAL VACCINES (50+ years) (1 of 2 - PCV) 01/28/1975 MAMMOGRAM 1996 COLOGUARD 01/28/2001 COLONOSCOPY 01/28/2001 COLORECTAL CANCER SCREENING 01/28/2001 FIT TEST 01/28/2001 FOBT 01/28/2001 SIGMOIDOSCOPY 01/28/2001 VIRTUAL COLONOSCOPY 01/28/2001 ZOSTER VACCINES (1 of 2) 01/28/2006 OSTEOPOROSIS SCREENING INITI AL (ONE-TIME) 01/28/2021 INFLUENZA VACCINE (#1) 2024 02/06/2019 COVID-19 VACCINE (3 - 2024-2 6 season) 2024 09/17/2020, 08/26/2020 Adult Td,Tdap Booster 02/26/2028 02/25/2018 RSV VACCINE (1 - 1-dose 75+ series) 01/28/2031 HEPATITIS A VACCINES Aged Out No long er eligible based on patient's age to complete this topic HIB VACCINES Aged Out No longer eligi ble based on patient's age to complete this topic MENINGOCOCCAL VACCINES (ACWY) Aged Out No longer eligible based on patient's age to complete this topic MENINGOCOCCAL VACCINES (B) Aged Out N o longer eligible based on patient's age to complete this topic Medical Devices Not on file Insurance [employer] [place] [address] [place] [address] HMO POS HMO POS O POS O [place] [address] [place] [address] [place] [place] [address] [place] [address] HMO POS [employer] Care Teams Precipitator Supervisor Relationship Specialty Start Date End Date Jeremiah Connelly MD PCP - General Internal Medicine 10/30/19 Additional Source Comments The information contained in this document represents components of the legal health record. It is not the complete legal health record.[facility]
== END 2025-04-14 10:18 | disposition home or self-care (01) ==
LOC: HO.HMCH 09:10
PROVIDERS: PCP Internal Medicine; Visit Provider Internal Medicine
DX: F32.4 Major depressive disorder, single episode, in partial remission (principal); E78.00 Pure hypercholesterolemia, unspecified

== ENCOUNTER → 2025-04-14 09:09 | Outpatient (BNVA) | payer MEDICARE, SELFPAY | PROVIDERS: PCP Internal Medicine; Visit Provider Internal Medicine | DX: F32.4 Major depressive disorder, single episode, in partial remission (principal); E78.00 Pure hypercholesterolemia, unspecified; Z79.899 Other long term (current) drug therapy | CPT/HCPCS: 99212 ==